=== PATIENT | female | born 1950 | race Caucasian/White ===

== ENCOUNTER 2025-06-25 13:28 | Emergency (ER) | payer MEDICARE ==
[2025-06-25] MEDS ORDERED: Ketorolac Tromethamine 30 MG (1 mL) VIAL ONE (14:31)
[2025-06-25] MEDS ORDERED: Acetaminophen 500 MG TAB ONE (14:31)
== END 2025-06-25 15:46 | disposition home or self-care (01) ==
LOC: CSHERS 13:28
DX: M25.462 Effusion, left knee (principal); E11.9 Type 2 diabetes mellitus without complications; W01.0XXA Fall on same level from slipping, tripping and stumbling without subsequent striking against object, initial encounter
CPT/HCPCS: 73564; J1885; 96372; 99283